=== PATIENT | female | born 1990 | race African-American/Black ===

== ENCOUNTER 2022-03-22 06:59 | Emergency (ER) | payer OTHER ==
[~2022-03-22] VITALS: Ht 172.7 cm; Wt 79.8 kg
[2022-03-22] MEDS ORDERED: LORazepam 1 MG TABLET PO ONE (07:15)
[2022-03-22] MEDS ORDERED: ACETAMINOPHEN 500 MG TABLET PO ONE (07:15)
[2022-03-22 07:23] VITALS: BP_SYST 147
[2022-03-22] MEDS ORDERED: NAPR-1172 PO (08:21)
[2022-03-22 09:46] VITALS: BP_SYST 128
== END 2022-03-22 09:46 | disposition home or self-care (01) ==
LOC: SED 06:59
DX: S20.229A Contusion of unspecified back wall of thorax, initial encounter (principal); Z79.899 Other long term (current) drug therapy; V49.40XA Driver injured in collision with unspecified motor vehicles in traffic accident, initial encounter; Y93.89 Activity, other specified; Y92.89 Other specified places as the place of occurrence of the external cause; Y99.8 Other external cause status
CPT/HCPCS: 71046-TC; 81025; 99283